=== PATIENT | male | born 1970 | race Hispanic/Latino ===

== ENCOUNTER 2022-07-04 05:27 | Emergency (ER) | payer BC ==
--- OUTSIDE RECORDS SUMMARY | 2022-07-04 05:30 | XMS REPORT | Continuity of Care Document ---
:1970 Author Organization [facility] t Address [address] [place] [address] Care Team Providers Name Role Phone ALVA DOLAN Primary Care Physician Unavailable CASI SMITH Attending Clinician Unavailable Team, [facility] Attending Clinician UnavailAlva Loo Attending Clinician Tru Gimenez MD Attending Clinician TRU GIMENEZ Attending Clinician Unavailable Payers Payer Name Policy Type Policy Number Effective Date Expiration Date S kingsley [facility] [place] - [id number] 2017 00:00:00 OUT OF STATE Problems Condition Condition Condition Status Onset Resolution Last Treating Co mments Source Name Details Category Date Date Treatment Clinician Date Onychomyco Onychomyco Disease Active U nivers sis sis 7-13 ity of 00:00: [address] Hyperlipid Hyperlipid Disease Active U nivers emia, emia, 7-13 ity of [place]spec[place] Medical hyperlipid hyperlipid Br anch emia type emia type Allergies, Adverse Reactions, Alerts Allergy Allergy Status Severity Reaction(s) Onset Inactive Treating Comm ents Source Name Type Date Date Clinician BEE DRUG Active Swelling Univers STING / INGREDI 4-06 ity of VENOM 00:00: [address] Bee Propensi Active Swelling Univer s Sting / ty to 4-06 ity of [place] adverse 00:00: [place] reaction 00 Medical s Branch Social History Social Habit Start Date Stop Date Quantity Comments Source History of Chews Tobacco University of tobacco use [facility] Exposure to Not sure University of SARS-CoV-2 [place] Medical (event) Branch Alcohol intake 2021-11-17 2021-11-17 Current University of 00:00:00 00:00:00 non-drinker of [facility] alcohol [place] (finding) Tobacco use and 2018-01-21 2018-01-21 Current user [facility] ity of exposure 00:00:00 00:00:00 [facility] Sex Ass[birth year] At [birth year] Universit y of 00:00:00 00:00:00 [facility] Smoking Status Start Date Stop Date Source Never smoker [facility] Medications Ordered Filled Start Stop Current Ordering Indication Dosage Frequency Signature Comments Components Source Medication Medication Date Date Medication? Clinician (SIG) Name Name benzonatate Yes [id number] 200mg Take 1 Univers 200 mg 1-31 capsule by ity of capsule 00:00: mouth 3 [place] 00 (three) Medical times Branch daily as needed for Cough. benzonatate Yes [id number] 200mg Take 1 Univers 200 mg 1-31 capsule by ity of capsule 00:00: mouth 3 [place] (three) Medical times Branch daily as needed for Cough. benzonatate Yes [id number] 200mg Take 1 Univers 200 mg 1-31 capsule by ity of capsule 00:00: mouth 3 [place] 00 (three) Medical times Branch daily as needed for Cough. benzonatate Yes [id number] 200mg Take 1 Univers 200 mg 1-31 capsule by ity of capsule 00:00: mouth 3 [place] (three) Medical times Branch daily as needed for Cough. methylPREDN 2021- No [id number] Take by Univers ISolone 4 11-17 mouth ity of mg tablets 00:00: 05:59 SEE-INSTRU [place] 00 :00 CTIONS for Medical 6 days. Branch follow package directions codeine-gua Yes 5mL Take 5 mL U nivers ifenesin 03 by mouth ity of 10-100 mg/5 00:00: every 6 [place] as mL oral 00 (six) Medical solution hours as Branch needed for Cough. Indication s: cough codeine-gua 0 Yes 5mL Take 5 mL U nivers ifenesin 1-03 by mouth ity of 10-100 mg/5 00:00: every 6 [place] as mL oral 00 (six) Medical solution hours as Branch needed for Cough. Indication s: cough codeine-gua 0 Yes 5mL Take 5 mL U nivers ifenesin 1-03 by mouth ity of 10-100 mg/5 00:00: every 6 [place] as mL oral 00 (six) Medical solution hours as Branch needed for Cough. Indication s: cough codeine-gua 0 Yes 5mL Take 5 mL U nivers ifenesin 1-03 by mouth ity of 10-100 mg/5 00:00: every 6 [place] as mL oral 00 (six) Medical solution hours as Branch needed for Cough. Indication s: cough azelastine 2020-10 Yes [id number] 1{spray Use 1 Univers 137 mcg 2-28 } [place] in ity of (0.1 %) 00:00: each [place] nasal spray 00 nostril 2 Med ical (two) Branch times daily. Use in each nostril as directed fluticasone 2020-10 Yes [id number] 1{spray Use 1 Univers propionate 2-28 } [place] in ity o f 50 00:00: each [place] mcg/actuati 00 nostril Medic al on nasal daily. Branch spray cetirizine 2020-10 Yes [id number] 10mg Take 1 U nivers (ZYRTEC) 10 2-28 tablet by ity of mg tablet 00:00: mouth [place] 00 daily. Medical Branch azelastine 2020-10 Yes [id number] 1{spray Use 1 Univers 137 mcg 2-28 } [place] in ity of (0.1 %) 00:00: each [place] nasal spray 00 nostril 2 Med ical (two) Branch times daily. Use in each nostril as directed fluticasone 2020-10 Yes [id number] 1{spray Use 1 Univers propionate 2-28 } [place] in ity o f 50 00:00: each [place] mcg/actuati 00 nostril Medic al on nasal daily. Branch spray cetirizine 2020-10 Yes [id number] 10mg Take 1 U nivers (ZYRTEC) 10 2-28 tablet by ity of mg tablet 00:00: mouth [place] 00 daily. Medical Branch azelastine 2020-10 Yes [id number] 1{spray Use 1 Univers 137 mcg 2-28 } [place] in ity of (0.1 %) 00:00: each [place] nasal spray 00 nostril 2 Med ical (two) Branch times daily. Use in each nostril as directed fluticasone 2020-10 Yes [id number] 1{spray Use 1 Univers propionate 2-28 } [place] in ity o f 50 00:00: each [place] mcg/actuati 00 nostril Medic al on nasal daily. Branch spray cetirizine 2020-10 Yes [id number] 10mg Take 1 U nivers (ZYRTEC) 10 2-28 tablet by ity of mg tablet 00:00: mouth [place] 00 daily. Medical Branch azelastine 2020-10 Yes [id number] 1{spray Use 1 Univers 137 mcg 2-28 } [place] in ity of (0.1 %) 00:00: each [place] nasal spray 00 nostril 2 Med ical (two) Branch times daily. Use in each nostril as directed fluticasone 2020-10 Yes [id number] 1{spray Use 1 Univers propionate 2-28 } [place] in ity o f 50 00:00: each [place] mcg/actuati 00 nostril Medic al on nasal daily. Branch spray cetirizine 2020-10 Yes [id number] 10mg Take 1 U nivers (ZYRTEC) 10 2-28 tablet by ity of mg tablet 00:00: mouth [place] 00 daily. Medical Branch losartan 50 2020-10- No [id number] 50mg Take 1 Univers mg tablet 2-04 tablet by ity of 00:00: 05:59 mouth [place] 00 :00 daily for Medical 90 days. Branch losartan 50 2020-10- No [id number] 50mg Take 1 Univers mg tablet 2-04 tablet by ity of 00:00: 05:59 mouth [place] 00 :00 daily for Medical 90 days. [place] azithromyci 2019-0 Yes [id number] 250mg Take 1 Univers n 250 mg 8-23 tablet by ity of tablet 00:00: mouth [place] 00 [facility] Medical [facility]. Branch Take 500 mg day 1, then 250 mg days 2 to 5. azithromyci 2020-0 Yes [id number] 250mg Take 1 Univers n 250 mg 8-23 tablet by ity of tablet 00:00: mouth [place] 00 [facility] Medical CTIONS. Branch Take 500 mg day 1, then 250 mg days 2 to 5. azithromyci 2020-0 Yes [id number] 250mg Take 1 Univers n 250 mg 8-23 tablet by ity of tablet 00:00: mouth [place] 00 [facility] Medical CTIONS. Branch Take 500 mg day 1, then 250 mg days 2 to 5. azithromyci 2020-0 Yes [id number] 250mg Take 1 Univers n 250 mg 8-23 tablet by ity of tablet 00:00: mouth [place] 00 [facility] CTIONS. Branch Take 500 mg day 1, then 250 mg days 2 to 5. Immunizations Ordered Filled Immunization Date Status Comments [facility] Immunization Name Name [facility] 2021-08-22 Completed [facility] 00:00:00 [facility] TDAP 2021-08-22 Completed [facility] 00:00:00 [facility] TDAP 2021-08-22 Completed [facility] 00:00:00 [facility] TDAP 2021-08-22 Completed [facility] 00:00:00 [facility] SARS-COV-2 COVID-19 2021-05-05 Completed Unive rsity of MODERNA VACCINE 00:00:00 [facility] SARS-COV-2 COVID-19 2021-05-05 Completed Unive rsity of MODERNA VACCINE 00:00:00 [facility] SARS-COV-2 COVID-19 2021-05-05 Completed Unive rsity of MODERNA VACCINE 00:00:00 [facility] SARS-COV-2 COVID-19 2021-05-05 Completed Unive rsity of MODERNA VACCINE 00:00:00 [facility] SARS-COV-2 COVID-19 2021-04-07 Completed Unive rsity of MODERNA VACCINE 00:00:00 [facility] SARS-COV-2 COVID-19 2021-04-07 Completed Unive rsity of MODERNA VACCINE 00:00:00 [facility] SARS-COV-2 COVID-19 2021-04-07 Completed Unive rsity of MODERNA VACCINE 00:00:00 [facility] SARS-COV-2 COVID-19 2021-04-07 Completed Unive rsity of MODERNA VACCINE 00:00:00 [facility] Procedures This patient has no known procedures. Encounters Start End Encounter Admission Attending Care Care Encounter Source Date/Time Date/Time Type Type Clinicians Facility Department ID 2022-04-21 2022-04-21 Outpatient R [facility] [id number] Univers 13:00:00 13:00:00 [id number] ity [facility] 2022-04-21 2022-04-21 [facility] [id number] Univers 13:00:00 13:00:00 CASI [facility] 2022-01-05 2022-01-05 Telephone Team, [facility] CARLOS A [id number] Univers 00:00:00 00:00:00 Health JENNA [id number] it y of [facility] [id number] [place] [id number] [facility] 082 [place] 2021-12-04 2021-12-04 Telephone Geovany [facility] [id number] Univers 00:00:00 00:00:00 Alva HEALTH [id number] it y of [place] [id number] [place] KIMI?BLEA [id number] Ak rodrigo [address] MEDICAL OFFICE BUILDING 2021-11-21 2021-11-21 Office LADONNA Gimenez [id number] Univers 11:00:00 12:00:00 Visit Tru P Y HEALTH [id number] ity of [facility] [id number] [place] [id number] [facility] 028 [place] 2021-11-21 2021-11-21 [facility] [id number] Univers 11:00:00 11:00:00 TRU gandhi [facility] Results This patient has no known results.
[2022-07-04 06:23] LABS: Absolute Lymphocytes (CBC) 1.3 K/uL (0.7-4.9); Hematocrit 44.1 % (39.6-49.0); Lymphocytes % 10.9 % (15.3-44.8); MCV 82.7 fL (80-100); MPV 8.1 fL (7.6-11.3); RBC Red Blood Cell Count 5.34 M/uL (4.33-5.43)
[2022-07-04] MEDS ORDERED: NA CHLORIDE 0.9% 1,000 ML ONE (06:27)
[2022-07-04 06:48] LABS: Protime INR 1.15
[2022-07-04 06:49] LABS: Bilirubin Direct 0.6 mg/dL (0-0.2); Magnesium 2.1 mg/dL (1.8-2.4); Troponin High Sensitivity 6.1 pg/mL (<58.9)
[2022-07-04 06:54] LABS: Albumin 4.5 g/dL (3.4-5.0); Bilirubin Total 1.2 mg/dL (0.2-1.0); Potassium 3.7 mmol/L (3.5-5.1); Protein, Total 8.9 g/dL (6.4-8.2)
[2022-07-04] MEDS ORDERED: FENTANYL CITR 100 MCG/2 ML ONE (07:08)
[2022-07-04] MEDS ORDERED: PANTOPRAZOLE 40 MG INJ ONE (07:09)
[2022-07-04] MEDS ORDERED: ONDANSETRON 4 MG/2 ML VIAL ONE ×2 (07:09→09:01)
--- NOTE | 2022-07-04 07:40 | RAD REPORT ---
EXAM DESCRIPTION: CT - Abdomen Pelvis W Contrast - 07/04/2022 7:19 am CLINICAL HISTORY: Abdominal pain/right lower quadrant pain COMPARISON: none. TECHNIQUE: Computed axial tomography of the abdomen pelvis was obtained. 100 cc Isovue-300 was admin istered intravenously. Oral contrast was not requested which limits evaluation of bowel and appendix All CT scans are performed using dose optimization technique as appropriate and may include automated exposure control or mA/KV adjustment according to patient size. FINDINGS: Fatty liver Spleen, pancreas, adrenal and kidneys appear unremarkable. There is no evidence of diverticulitis. Normal appendix Patient's known gallstone is not visualized on this exam. There is minimal stranding adjacent to the gallbladder IMPRESSION: Minimal stranding adjacent to the gallbladder may indicate inflammation
--- NOTE | 2022-07-04 07:41 | RAD REPORT ---
EXAM DESCRIPTION: US - Abdomen Exam Limited - 07/04/2022 6:48 am CLINICAL HISTORY: Abdominal pain. COMPARISON: None. FINDINGS: The gallbladder wall is not thickened. 18 millimeter stone within the neck of the gallbladder. The biliary tree is normal caliber. IMPRESSION: Cholelithiasis
--- NOTE | 2022-07-04 07:42 | RAD REPORT ---
EXAM DESCRIPTION: Monika Single View07/04/2022 7:32 am CLINICAL HISTORY: Abdominal pain COMPARISON: none FINDINGS: The lungs appear clear of acute infiltrate. The heart is normal size IMPRESSION: No acute abnormalities displayed
--- NOTE | 2022-07-04 08:25 | ER ---
Nurse's Notes [facility] Name: Christophe Manning Age: 52 yrs Sex: Male : 1970 Arrival Date: 07/04/2022 Time: 05:31 Bed 18 Private MD: Diagnosis: Other cholelithiasis with obstruction;Acute cholecystitis;Epigastric abdominal tenderness;Bradycardia, unspecified Presentation: 07/04 05:45 Chief complaint: Patient states: "I have been burping all night. I took some tums tw5 around 0023 thinking that would help, but it didn't. I got home around 0500 and tried to go to the bathroom and I couldn't. Shortly after that I threw up. My stomach just feels really tight and it hurts.". Coronavirus screen: Vaccine status: Patient reports receiving the 2nd dose of the covid vaccine. Moderna. Ebola Screen: Patient negative for fever greater than or equal to 101.5 degrees Fahrenheit, and additional compatible Ebola Virus Disease symptoms Patient denies exposure to infectious person. Patient denies travel to an Ebola-affected area in the 21 days before illness onset. Initial Sepsis Screen: Does the patient meet any 2 criteria? No. Patient's initial sepsis screen is negative. Does the patient have a suspected source of infection? No. Patient's initial sepsis screen is negative. Risk Assessment: Do you want to hurt yourself or someone else? Patient reports no desire to harm self or others. Onset of symptoms was July 04, 2022 at 00:23. 05:45 Method Of Arrival: Ambulatory tw5 05:45 Acuity: DOMINIK 3 tw5 Triage Assessment: 05:48 General: Appears uncomfortable, Behavior is calm, cooperative, appropriate for age. tw5 Pain: Pain currently is 9 out of 10 on a pain scale. GI: Reports vomiting. Historical: - Allergies: 05:48 No Known Allergies; tw5 - PMHx: 05:48 None; tw5 - PSHx: 05:48 None; tw5 - Immunization history:: Flu vaccine is not up to date. - Social history:: Smoking status: Patient denies any tobacco usage or history of. Screenin:55 Abuse screen: Denies threats or abuse. Nutritional screening: No deficits noted. ja4 Tuberculosis screening: No symptoms or risk factors identified. Fall Risk IV access (20 points). Assessment: 05:55 General: Appears uncomfortable, well nourished, Behavior is calm, cooperative, ja4 appropriate for age. Pain: Complains of pain in abdomen Pain currently is 9 out of 10 on a pain scale. Pain began 4 hours ago. Is intermittent. Cardiovascular: No deficits noted. GI: Abdomen is tender to palpation firm Reports bloating, gaseousness. 07:36 General: Appears in no apparent distress. comfortable, Behavior is calm, cooperative. tp1 General: states pain medication has helped. . Pain: Complains of pain in epigastric area Pain does not radiate. Pain currently is 6 out of 10 on a pain scale. Quality of pain is described as sharp, Is continuous. Neuro: Level of Consciousness is awake, alert, obeys commands, Oriented to person, place, time, situation. Cardiovascular: Patient's skin is warm and dry. Respiratory: Airway is patent Respiratory effort is even, unlabored. GI: Abdomen is flat, non-distended, Abd is soft X 4 quads Abdomen is tender to palpation in epigastric area. Derm: Skin is pink, warm \\T\\ dry. Musculoskeletal: Circulation, motion, and sensation intact. 08:30 Reassessment: Patient appears in no apparent distress at this time. Patient is alert, tp1 oriented x 3, equal unlabored respirations, skin warm/dry/pink. States ABD pain is coming back. rates pain 9/10. provider notified. 09:58 Reassessment: Patient appears in no apparent distress at this time. Patient is alert, tp1 oriented x 3, equal unlabored respirations, skin warm/dry/pink. states pain as decreased, rates pain 3/10. 10:21 Reassessment: report given to Paul GUZMAN. tp1 10:50 Reassessment: Patient appears in no apparent distress at this time. No changes from tp1 previously documented assessment. Patient is alert, oriented x 3, equal unlabored respirations, skin warm/dry/pink. Vital Signs: 05:45 BP 184 / 79; Pulse 50; Resp 18; Temp 98.6; Pulse Ox 100% ; Weight 112.49 kg; Height 5 tw5 ft. 9 in. (175.26 cm); Pain 9/10; 05:57 BP 187 / 92; Pulse 46; Resp 14; Pulse Ox 98% ; Pain 9/10; ja4 07:38 BP 150 / 74; Pulse 45; Resp 14; Pulse Ox 98% on R/A; tp1 08:50 BP 175 / 82; Pulse 54; Resp 14; Pulse Ox 100% on R/A; tp1 09:50 BP 128 / 65; Pulse 45; Resp 14; Pulse Ox 97% on R/A; tp1 11:07 BP 130 / 79; Pulse 46; Resp 14; Pulse Ox 99% on R/A; tp1 05:45 Body Mass Index 36.62 (112.49 kg, 175.26 cm) tw5 ED Course: 05:31 Patient arrived in ED. bp1 05:46 Chivo Flynn, RN is Primary Nurse. ja4 05:48 Triage completed. tw5 05:48 Arm band placed on. tw5 05:55 Awaiting ED provider evaluation. ja4 05:55 Bed in low position. Call light in reach. Side rails up X 1. Adult w/ patient. ja4 05:55 Inserted saline lock: 20 gauge in right antecubital area, using aseptic technique. ja4 Blood collected. 06:04 Pete Diggs MD is Attending Physician. ailyn 06:14 CBC with Diff Sent. ja4 06:14 CMP Sent. ja4 06:14 Lipase Sent. ja4 06:14 Magnesium Sent. ja4 06:15 NT PRO-BNP Sent. ja4 06:15 PT-INR Sent. ja4 06:15 Troponin HS Sent. ja4 06:30 EKG done, by ED staff, reviewed by Pete Diggs MD. 5 06:31 Patient has correct armband on for positive identification. Warm blanket given. Pillow mh5 given. bog worker on. Pulse ox on. NIBP on. 06:49 US Abdomen Limited In Process Unspecified. EDMS 07:00 Report received from Rupert GUZMAN. tp1 07:21 CT Abd/Pelvis - IV Contrast Only In Process Unspecified. EDMS 07:33 XRAY Chest (1 view) In Process Unspecified. EDMS 08:23 Primary Nurse role handed off by Chivo Flynn, RN tp1 08:23 Nicole Rhodes, RN is Primary Nurse. tp1 08:41 SARS RAPID Sent. iw 09:17 initiated a transfer with Ashanti Williamson from the [facility]. eb 09:23 connected Biliary senior international tax manager for [facility] with Dr. Diggs for eb patient transfer consultation. 10:03 administrative approval given by Ashanti Ponce Rn/ patient has been accepted to [facility] bed 1460/ Dr. Dominik Oates has accepted the patient in transfer/ report to be called to [phone]. 11:06 No provider procedures requiring assistance completed. Patient transferred, IV remains tp1 in place. Administered Medications: 07:04 Drug: ProTONIX (pantoprazole) 40 mg Route: IVP; Site: right antecubital; ja4 07:40 Follow up: Response: Pain is decreased tp1 07:04 Drug: Zofran (Ondansetron) 4 mg Route: IVP; Site: right antecubital; ja4 07:40 Follow up: Response: No adverse reaction tp1 07:04 Drug: fentaNYL (PF) 50 mcg Route: IVP; Site: right antecubital; ja4 07:39 Follow up: Response: Pain is decreased tp1 07:08 Drug: NS 0.9% 1000 ml Route: IV; Rate: 1 bolus; Site: right antecubital; ja4 08:35 Follow up: IV Status: Completed infusion; IV Intake: 1000ml tp1 08:54 Drug: Zofran (Ondansetron) 4 mg Route: IVP; Site: right antecubital; tp1 09:59 Follow up: Response: No adverse reaction tp1 08:56 Drug: Dilaudid (HYDROmorphone) 1 mg Route: IVP; Site: right antecubital; tp1 09:59 Follow up: Response: Pain is decreased tp1 09:00 Drug: Zosyn (piperacillin-tazobactam) 3.375 grams Route: IVPB; Infused Over: 60 mins; tp1 Site: right antecubital; 09:59 Follow up: Response: No adverse reaction; IV Status: Completed infusion; IV Intake: tp1 100ml Medication: 05:55 VIS not applicable for this client. ja4 Intake: 08:35 IV: 1000ml; Total: 1000ml. tp1 09:59 IV: 100ml; Total: 1100ml. tp1 Outcome: 08:24 ER care complete, transfer ordered by MD. robertson 11:07 Transferred by ground EMS to [facility], Transfer form completed. tp1 11:07 Condition: good 11:07 Instructed on the need for transfer. 11:08 Patient left the ED. tp1 Signatures: Dispatcher [employer] EDPete Moore MD MD cha Williams, Irene, THOMAS RN Natalie Fox 5 Daya Real Brittany bp1 Wood, Tiffany 5 Nicole Rhodes RN RN tp1 Chivo Flynn RN RN ja4 Corrections: (The following items were deleted from the chart) 06:21 06:14 BASIC METABOLIC PANEL+C.LAB.BRZ drawn and sent. [email or web address] LUCY 06:21 06:14 HEPATIC FUNCTION+C.LAB.BRZ drawn and sent. latanya ALMODOVARSC
--- NOTE | 2022-07-04 08:25 | EDPHYS ---
Physician Documentation [facility] Name: Christophe Manning Age: 52 yrs Sex: Male : 1970 Arrival Date: 07/04/2022 Time: 05:31 Bed 18 Private MD: ED Physician Pete Diggs HPI: 07/04 08:19 This 52 yrs old Male presents to ER via Ambulatory with complaints of ailyn Abdominal Pain, Vomiting. 08:19 The patient presents to the emergency department with nausea, vomiting, that is ailyn continuous. Onset: The symptoms/episode began/occurred yesterday, last night. Possible causes: unknown. The symptoms are aggravated by nothing. The symptoms are alleviated by nothing. Associated signs and symptoms: The patient has no apparent associated signs or symptoms. Severity of symptoms: At their worst the symptoms were moderate in the emergency department the symptoms are unchanged. It is unknown whether or not the patient has had similar symptoms in the past. Historical: - Allergies: 05:48 No Known Allergies; tw5 - PMHx: 05:48 None; tw5 - PSHx: 05:48 None; tw5 - Immunization history:: Flu vaccine is not up to date. - Social history:: Smoking status: Patient denies any tobacco usage or history of. ROS: 08:20 Constitutional: Negative for fever, chills, and weight loss, Eyes: Negative for injury, ailyn pain, redness, and discharge, ENT: Negative for injury, pain, and discharge, Neck: Negative for injury, pain, and swelling, Cardiovascular: Negative for chest pain, palpitations, and edema, Respiratory: Negative for shortness of breath, cough, wheezing, and pleuritic chest pain, Back: Negative for injury and pain, : Negative for injury, bleeding, discharge, and swelling, MS/Extremity: Negative for injury and deformity, Skin: Negative for injury, rash, and discoloration, Neuro: Negative for headache, weakness, numbness, tingling, and seizure, Psych: Negative for depression, anxiety, suicide ideation, homicidal ideation, and hallucinations, Allergy/Immunology: Negative for hives, rash, and allergies, Endocrine: Negative for neck swelling, polydipsia, polyuria, polyphagia, and marked weight changes, Hematologic/Lymphatic: Negative for swollen nodes, abnormal bleeding, and unusual bruising. 08:20 Abdomen/GI: Positive for abdominal pain, nausea and vomiting, of the epigastric area, right upper quadrant and left upper quadrant. Exam: 08:20 Constitutional: This is a well developed, well nourished patient who is awake, alert, ailyn and in no acute distress. Head/Face: Normocephalic, atraumatic. Eyes: Pupils equal round and reactive to light, extra-ocular motions intact. Lids and lashes normal. Conjunctiva and sclera are non-icteric and not injected. Cornea within normal limits. Periorbital areas with no swelling, redness, or edema. ENT: Nares patent. No nasal discharge, no septal abnormalities noted. Tympanic membranes are normal and external auditory canals are clear. Oropharynx with no redness, swelling, or masses, exudates, or evidence of obstruction, uvula midline. Mucous membranes moist. Neck: Trachea midline, no thyromegaly or masses palpated, and no cervical lymphadenopathy. Supple, full range of motion without nuchal rigidity, or vertebral point tenderness. No Meningismus. Chest/axilla: Normal chest wall appearance and motion. Nontender with no deformity. No lesions are appreciated. Cardiovascular: Regular rate and rhythm with a normal S1 and S2. No gallops, murmurs, or rubs. Normal PMI, no JVD. No pulse deficits. Respiratory: Lungs have equal breath sounds bilaterally, clear to auscultation and percussion. No rales, rhonchi or wheezes noted. No increased work of breathing, no retractions or nasal flaring. Back: No spinal tenderness. No costovertebral tenderness. Full range of motion. Male : Normal genitalia with no discharge or lesions. Skin: Warm, dry with normal turgor. Normal color with no rashes, no lesions, and no evidence of cellulitis. MS/ Extremity: Pulses equal, no cyanosis. Neurovascular intact. Full, normal range of motion. Neuro: Awake and alert, GCS 15, oriented to person, place, time, and situation. Cranial nerves II-XII grossly intact. Motor strength 5/5 in all extremities. Sensory grossly intact. Cerebellar exam normal. Normal gait. Psych: Awake, alert, with orientation to person, place and time. Behavior, mood, and affect are within normal limits. 08:20 Abdomen/GI: Inspection: abdomen appears normal, Bowel sounds: normal, Palpation: abdomen is soft and non-tender, Liver: no appreciated palpable abnormalities, Hernia: not appreciated. 08:20 Abdomen/GI: Indicators: Muhammad's sign is positive. Vital Signs: 05:45 BP 184 / 79; Pulse 50; Resp 18; Temp 98.6; Pulse Ox 100% ; Weight 112.49 kg; Height 5 tw5 ft. 9 in. (175.26 cm); Pain 9/10; 05:57 BP 187 / 92; Pulse 46; Resp 14; Pulse Ox 98% ; Pain 9/10; ja4 07:38 BP 150 / 74; Pulse 45; Resp 14; Pulse Ox 98% on R/A; tp1 08:50 BP 175 / 82; Pulse 54; Resp 14; Pulse Ox 100% on R/A; tp1 09:50 BP 128 / 65; Pulse 45; Resp 14; Pulse Ox 97% on R/A; tp1 11:07 BP 130 / 79; Pulse 46; Resp 14; Pulse Ox 99% on R/A; tp1 05:45 Body Mass Index 36.62 (112.49 kg, 175.26 cm) tw5 MDM: 06:05 Patient medically screened. [facility] 08:22 Differential diagnosis: Nonspecific abd pain, cholecystitis, pancreatitis, viral ailyn gastroenteritis, gastroenteritis, acute coronary syndrome, coronary artery disease. Data reviewed: vital signs, nurses notes, lab test result(s), EKG, radiologic studies, CT scan, ultrasound. Data interpreted: traffic monitor specialist: rate is 45 beats/min, rhythm is regular, Pulse oximetry: on room air. Test interpretation: by ED physician or midlevel provider: ECG, plain radiologic studies. Counseling: I had a detailed discussion with the patient and/or guardian regarding: the historical points, exam findings, and any diagnostic results supporting the discharge/admit diagnosis, lab results, radiology results, the need to transfer to another facility, for higher level of care, [facility] does not immediately have the required specialist. 07/04 05:49 Order name: CBC with Diff; Complete Time: 08:16 tw5 07/04 05:49 Order name: CMP; Complete Time: 08:16 tw5 07/04 05:49 Order name: Lipase; Complete Time: 08:16 tw5 07/04 06:06 Order name: Magnesium; Complete Time: 08:16 ailyn 07/04 06:06 Order name: NT PRO-BNP; Complete Time: 08:16 [facility] 07/04 06:06 Order name: PT-INR; Complete Time: 08:16 [facility] 07/04 06:06 Order name: Troponin HS; Complete Time: 08:16 [facility] 07/04 06:06 Order name: XRAY Chest (1 view); Complete Time: 08:16 [facility] 07/04 06:18 Order name: CT Abd/Pelvis - IV Contrast Only; Complete Time: 08:16 [facility] 07/04 06:21 Order name: Bilirubin Direct; Complete Time: 08:16 EDMT 07/04 08:29 Order name: SARS RAPID; Complete Time: 09:19 eb 07/04 10:11 Order name: Urine Dipstick-Ancillary EDMT 07/04 05:49 Order name: IV Saline Lock; Complete Time: 06:14 tw5 07/04 05:49 Order name: Labs collected and sent; Complete Time: 08:47 tw5 07/04 06:06 Order name: EKG; Complete Time: 06:07 [facility] 07/04 06:06 Order name: Cardiac monitoring; Complete Time: 06:29 [facility] 07/04 06:06 Order name: EKG - Nurse/Tech; Complete Time: 06:29 [facility] 07/04 06:06 Order name: O2 Per Protocol; Complete Time: 06:29 [facility] 07/04 06:06 Order name: O2 Sat Monitoring; Complete Time: 06:29 [facility] 07/04 06:18 Order name: US Abdomen Limited; Complete Time: 08:16 [facility] Administered Medications: 07:04 Drug: ProTONIX (pantoprazole) 40 mg Route: IVP; Site: right antecubital; ja4 07:40 Follow up: Response: Pain is decreased tp1 07:04 Drug: Zofran (Ondansetron) 4 mg Route: IVP; Site: right antecubital; ja4 07:40 Follow up: Response: No adverse reaction tp1 07:04 Drug: fentaNYL (PF) 50 mcg Route: IVP; Site: right antecubital; ja4 07:39 Follow up: Response: Pain is decreased tp1 07:08 Drug: NS 0.9% 1000 ml Route: IV; Rate: 1 bolus; Site: right antecubital; ja4 08:35 Follow up: IV Status: Completed infusion; IV Intake: 1000ml tp1 08:54 Drug: Zofran (Ondansetron) 4 mg Route: IVP; Site: right antecubital; tp1 09:59 Follow up: Response: No adverse reaction tp1 08:56 Drug: Dilaudid (HYDROmorphone) 1 mg Route: IVP; Site: right antecubital; tp1 09:59 Follow up: Response: Pain is decreased tp1 09:00 Drug: Zosyn (piperacillin-tazobactam) 3.375 grams Route: IVPB; Infused Over: 60 mins; tp1 Site: right antecubital; 09:59 Follow up: Response: No adverse reaction; IV Status: Completed infusion; IV Intake: tp1 100ml Disposition Summary: 07/04/22 08:24 Transfer Ordered Transfer Location: [facility] ailyn Reason: Higher level of care ailyn Condition: Stable ailyn Problem: new ailyn Symptoms: have improved ailyn Accepting Physician: Dr. Oates(07/04/22 11:08) tp1 Diagnosis - Other cholelithiasis with obstruction ailyn - Acute cholecystitis ailyn - Epigastric abdominal tenderness ailyn - Bradycardia, unspecified ailyn Forms: - Medication Reconciliation Form ailyn - SBAR form ailyn Signatures: Dispatcher [employer] EDMS Pete Diggs MD MD cha Botello, Elizabeth eb Wood, Tiffany tw5 Nicole Rhodes, RN RN tp1 Chivo Flynn RN RN ja4 Corrections: (The following items were deleted from the chart) 06:21 06:07 BASIC METABOLIC PANEL+C.LAB.BRZ ordered. EDMS EDMS 06:21 06:07 HEPATIC FUNCTION+C.LAB.BRZ ordered. EDMS EDMS 10:32 08:24 TO [facility] ailyn eb 11:08 10:32 Dr. Oates eb tp1
[2022-07-04] MEDS ORDERED: NA CHLORIDE 0.9% 100 ML ONE (08:55)
[2022-07-04] MEDS ORDERED: PIPERACIL/TAZO 3.375 GM VIAL IV ONE (08:55)
[2022-07-04 09:00] LABS: SARS-CoV-2 Antigen Rapid Res Negative (Negative)
[2022-07-04] MEDS ORDERED: HYDROMORPHONE HCL 1 MG/ML INJ ONE (09:01)
[2022-07-04 10:11] LABS: Urine Blood Negative (Negative); Urine Glucose Negative (Negative); Urine Protein Negative (Negative); Urine Specific Gravity 1.015 (1.005-1.030)
--- NOTE | 2022-07-05 15:56 | EKG ---
Test Date: 2022-07-04 Test Time: 06:29:12 Senior Mechanical Designer: AKIRA MEASUREMENT RESULTS: Intervals: Rate: 43 WY: 164 QRSD: 86 QT: 458 QTc: 387 [place]: P: 22 WY: 164 QRS: 48 T: 84 INTERPRETIVE STATEMENTS: Marked sinus bradycardia Abnormal ECG Compared to ECG 06/20/2010 09:00:02 T-wave abnormality no longer present Electronically Signed On 07-05-22 15:54:33 CDT by Ike Rocha
[2022-07-05 19:47] VITALS: TEMP 98.6
[2022-07-05 20:06] VITALS: BP 130/79; O2SAT 99
== END 2022-07-04 11:08 | disposition short-term general hospital (02) ==
LOC: ER 05:27
DX: K80.01 Calculus of gallbladder with acute cholecystitis with obstruction (principal); R00.1 Bradycardia, unspecified; R10.816 Epigastric abdominal tenderness; Z20.822 Contact with and (suspected) exposure to COVID-19
CPT/HCPCS: 96365; 96361; 93005; 85025; 36415; 83735; 85610; 81003; 82248; 84484; 83690; 80053; 83880; 74177; 71045; 76705; 96375; 99285; 87811; Q9967; J2543; C9113; J3010; J1170; J7030; J2405 ×2